=== PATIENT | male | born 1950 | race Caucasian/White ===

== ENCOUNTER 2022-11-15 08:28 | Outpatient (CLI) | payer MEDICARE, OTHER ==
--- NOTE | 2022-11-15 08:45 | XRAY Report ---
PROCEDURE: Chest 2 View X-Ray INDICATIONS: SOF, NIX, DIZZINESS TECHNIQUE: 2 views of the chest were acquired. COMPARISON: None. FINDINGS: Surgical changes and devices: None. Lungs and pleura: No pleural effusions or pneumothorax. Lungs are clear. Mediastinum: Mediastinal contours appear normal. Heart size is normal. Bones and chest wall: No suspicious bony lesions. Overlying soft tissues appear unremarkable. IMPRESSION: No acute cardiopulmonary process. Reviewed by: Omer Christensen on 11/15/2022 8:43 AM PDT Approved by: Omer Christensen on 11/15/2022 8:43 AM PDT Station ID: [id number]
== END 2022-11-15 08:29 | disposition home or self-care (01) ==
LOC: DI.S 08:28
PROVIDERS: ATTEND Family Medicine
DX: R06.02 Shortness of breath (principal); R06.09 Other forms of dyspnea; R42 Dizziness and giddiness

== ENCOUNTER 2022-11-21 13:18 | Outpatient (CLI) | payer MEDICARE, OTHER | END 2022-11-21 13:19 | disposition home or self-care (01) | LOC: DI 13:18 | PROVIDERS: ATTEND Family Medicine | DX: R06.09 Other forms of dyspnea (principal); I47.1 Supraventricular tachycardia; I49.1 Atrial premature depolarization; I51.7 Cardiomegaly; I77.810 Thoracic aortic ectasia | CPT/HCPCS: 93306 ==

== ENCOUNTER 2022-11-21 14:40 | Outpatient (CLI) | payer MEDICARE, OTHER | END 2022-11-21 14:41 | disposition home or self-care (01) | LOC: RT 14:40 | PROVIDERS: ATTEND Family Medicine | DX: R06.02 Shortness of breath (principal); R06.09 Other forms of dyspnea; I47.1 Supraventricular tachycardia; I49.1 Atrial premature depolarization; I51.7 Cardiomegaly; I77.810 Thoracic aortic ectasia; Z86.79 Personal history of other diseases of the circulatory system | CPT/HCPCS: 93005; 93306 ==

== ENCOUNTER 2023-03-14 07:24 | Outpatient (CLI) | payer MEDICARE, OTHER ==
[2023-03-14 14:30] LABS: BASOPHILS % (AUTO) 0.4 %; EOSINOPHILS # (AUTO) 0.2 10^3/uL (0.0-0.7); EOSINOPHILS % (AUTO) 4.7 %; HCT - HEMATOCRIT 46.3 % (42.0-52.0); HGB - HEMOGLOBIN 15.4 g/dL (14.0-18.0); LYMPHOCYTES # (AUTO) 0.8 10^3/uL (1.5-3.5); MEAN CORPUSCULAR HGB CONC 33.3 g/dL (32.0-36.0); MEAN CORPUSCULAR VOLUME 90.3 fL (80.0-94.0); MEAN PLATELET VOLUME 11.4 fL (7.4-11.4); MONOCYTES # (AUTO) 0.4 10^3/uL (0.0-1.0); MONOCYTES % (AUTO) 8.4 %; NEUTROPHILS # (AUTO) 3.4 10^3/uL (1.5-6.6); NEUTROPHILS % (AUTO) 70.3 %; PLT - PLATELET COUNT 208 10^3/uL (130-450); RED BLOOD COUNT 5.13 10^6/uL (4.70-6.10); RED CELL DISTRIBUTION WIDTH 12.5 % (12.0-15.0); WHITE BLOOD COUNT 4.9 x10^3/uL (4.8-10.8)
[2023-03-14 16:01] LABS: BILIRUBIN,URINE NEGATIVE (NEGATIVE); GLUCOSE, URINE (UA) NEGATIVE (NEGATIVE); KETONES,URINE (UA) NEGATIVE (NEGATIVE); LEUKOCYTE ESTERASE, URINE NEGATIVE (NEGATIVE); NITRITE,URINE NEGATIVE (NEGATIVE); OCCULT BLOOD,URINE NEGATIVE (NEGATIVE); PROTEIN,URINE NEGATIVE (NEGATIVE); UROBILINOGEN,URINE 0.2 (NORMAL) E.U./dL (NORMAL)
[2023-03-14 16:04] LABS: CLARITY,URINE CLEAR (CLEAR)
[2023-03-14 16:48] LABS: ALBUMIN 4.5 g/dL (3.2-5.5); ALBUMIN/GLOBULIN RATIO 2.1 (1.0-2.2); ALKALINE PHOSPHATASE 65 IU/L (42-121); ALT ALANINE AMINOTRANSFERASE 23 IU/L (10-60); AST ASPARTATE AMINOTRANSFERASE 21 IU/L (10-42); BILIRUBIN,TOTAL 0.6 mg/dL (0.2-1.0); BUN - BLOOD UREA NITROGEN 13 mg/dL (6-20); CALCIUM 9.4 mg/dL (8.5-10.3); CARBON DIOXIDE - CO2 33 mmol/L (21-32); CHLORIDE 102 mmol/L (101-111); CHOL/HDL RATIO 4.3 (<5.0); CHOLESTEROL 164 mg/dL; CREATININE 0.9 mg/dL (0.6-1.3); CRP HIGH SENSITIVITY 2.98 mg/L; GFR - MDRD 83 (>89); GLUCOSE 101 mg/dL (74-104); HDL CHOLESTEROL 38 mg/dL; LDL CHOLESTEROL,CALCULATED 102 mg/dL; LDL/HDL RATIO 2.7 (<3.6); POTASSIUM 3.6 mmol/L (3.5-4.5); SODIUM 141 mmol/L (135-145); TOTAL PROTEIN 6.6 g/dL (6.4-8.9); TRIGLYCERIDES 118 mg/dL (48-352); VLDL CHOLESTEROL 24 mg/dL
[2023-03-14 17:10] LABS: THYROID STIMULATING HORMONE 3.09 uIU/mL (0.34-5.60)
[2023-03-14 17:13] LABS: FERRITIN 68.9 ng/mL (23.9-336.2)
[2023-03-14 18:08] LABS: ESTIMATED AVERAGE GLUCOSE 120 mg/dL (70-100); HEMOGLOBIN A1c% 5.8 % (4.27-6.07)
[2023-03-15 08:09] LABS: VITAMIN D 25-HYDROXY 37.2 ng/mL (30.0-100.0)
== END 2023-03-14 07:25 | disposition home or self-care (01) ==
LOC: LAB.S 07:24
PROVIDERS: ATTEND Family Medicine
DX: E78.5 Hyperlipidemia, unspecified (principal); R73.09 Other abnormal glucose; E03.9 Hypothyroidism, unspecified; N40.1 Benign prostatic hyperplasia with lower urinary tract symptoms; G64 Other disorders of peripheral nervous system; I10 Essential (primary) hypertension; E55.9 Vitamin D deficiency, unspecified; R05.9 Cough, unspecified; R06.00 Dyspnea, unspecified; K21.9 Gastro-esophageal reflux disease without esophagitis; F33.9 Major depressive disorder, recurrent, unspecified; D64.9 Anemia, unspecified
CPT/HCPCS: 36415; 80053; 80061; 81001; 81003; 82306; 82626; 82728; 83036; 83090; 83721; 84153; 84154; 84207; 84439; 84443; 84480; 84481; 84482; 85025; 86141

== ENCOUNTER 2023-08-26 08:12 | Outpatient (CLI) | payer MEDICARE, OTHER ==
[2023-08-26 15:30] LABS: BASOPHILS % (AUTO) 0.5 %; EOSINOPHILS # (AUTO) 0.2 10^3/uL (0.0-0.7); EOSINOPHILS % (AUTO) 5.6 %; HCT - HEMATOCRIT 44.3 % (42.0-52.0); HGB - HEMOGLOBIN 14.7 g/dL (14.0-18.0); LYMPHOCYTES # (AUTO) 0.8 10^3/uL (1.5-3.5); LYMPHOCYTES % (AUTO) 17.9 %; MEAN CORPUSCULAR HEMOGLOBIN 30.4 pg (27.0-31.0); MEAN CORPUSCULAR HGB CONC 33.2 g/dL (32.0-36.0); MEAN CORPUSCULAR VOLUME 91.7 fL (80.0-94.0); MEAN PLATELET VOLUME 11.6 fL (7.4-11.4); MONOCYTES # (AUTO) 0.4 10^3/uL (0.0-1.0); MONOCYTES % (AUTO) 8.1 %; NEUTROPHILS # (AUTO) 2.9 10^3/uL (1.5-6.6); NEUTROPHILS % (AUTO) 67.9 %; PLT - PLATELET COUNT 202 10^3/uL (130-450); RED BLOOD COUNT 4.83 10^6/uL (4.70-6.10); RED CELL DISTRIBUTION WIDTH 12.8 % (12.0-15.0); WHITE BLOOD COUNT 4.3 x10^3/uL (4.8-10.8)
[2023-08-26 15:42] LABS: % IRON SATURATION 33 % (20-50); ALBUMIN 4.3 g/dL (3.2-5.5); ALBUMIN/GLOBULIN RATIO 1.8 (1.0-2.2); ALKALINE PHOSPHATASE 63 IU/L (42-121); ALT ALANINE AMINOTRANSFERASE 25 IU/L (10-60); AST ASPARTATE AMINOTRANSFERASE 18 IU/L (10-42); BILIRUBIN,TOTAL 0.6 mg/dL (0.2-1.0); BUN - BLOOD UREA NITROGEN 17 mg/dL (6-20); CALCIUM 9.3 mg/dL (8.5-10.3); CARBON DIOXIDE - CO2 33 mmol/L (21-32); CHLORIDE 103 mmol/L (101-111); CHOL/HDL RATIO 4.7 (<5.0); CHOLESTEROL 177 mg/dL; CREATININE 0.9 mg/dL (0.6-1.3); CRP HIGH SENSITIVITY 2.74 mg/L; GFR - MDRD 83 (>89); GLUCOSE 106 mg/dL (74-104); HDL CHOLESTEROL 38 mg/dL; IRON 110 ug/dL (50-212); LDL CHOLESTEROL,CALCULATED 119 mg/dL; LDL/HDL RATIO 3.1 (<3.6); POTASSIUM 3.6 mmol/L (3.5-4.5); SODIUM 140 mmol/L (135-145); TOTAL IRON BINDING CAPACITY 333 ug/dL (250-450); TOTAL PROTEIN 6.7 g/dL (6.4-8.9); TRANSFERRIN 238 mg/dL (203-362); TRIGLYCERIDES 100 mg/dL (48-352); VLDL CHOLESTEROL 20 mg/dL
[2023-08-26 15:47] LABS: THYROID STIMULATING HORMONE 2.51 uIU/mL (0.34-5.60)
[2023-08-26 15:54] LABS: FERRITIN 72.5 ng/mL (23.9-336.2)
[2023-08-26 20:26] LABS: ESTIMATED AVERAGE GLUCOSE 114 mg/dL (70-100); HEMOGLOBIN A1c% 5.6 % (4.27-6.07)
[2023-08-27 08:11] LABS: VITAMIN D 25-HYDROXY 35.6 ng/mL (30.0-100.0)
== END 2023-08-26 08:13 | disposition home or self-care (01) ==
LOC: LAB.S 08:12
PROVIDERS: ATTEND Family Medicine
DX: I10 Essential (primary) hypertension (principal); R73.09 Other abnormal glucose; E78.5 Hyperlipidemia, unspecified; R53.83 Other fatigue; E55.9 Vitamin D deficiency, unspecified; E03.9 Hypothyroidism, unspecified; D64.9 Anemia, unspecified
CPT/HCPCS: 36415; 80053; 80061; 82306; 82626; 82728; 83036; 83090; 83540; 83721; 84439; 84443; 84466; 84480; 84481; 84482; 85025; 86141

== ENCOUNTER 2023-11-27 11:52 | Outpatient (CLI) | payer MEDICARE, OTHER | END 2023-11-27 11:53 | disposition EMS.NT | LOC: EMS 11:52 | DX: Z04.1 Encounter for examination and observation following transport accident (principal); V89.2XXA Person injured in unspecified motor-vehicle accident, traffic, initial encounter; Y93.89 Activity, other specified; Y92.414 Local residential or business street as the place of occurrence of the external cause ==